=== PATIENT | female | born 1990 | race Hispanic/Latino ===

== ENCOUNTER 2019-08-26 05:30 | Inpatient (IN) | payer OTHER ==
--- NOTE | 2019-08-25 19:59 | PDOC.LDHP ---
Labor and Delivery H&P HPI: 29 y/o at 40 and 1/7 weeks presents for TOLAC with pitocin induction. R /B/A of TOLAC carefully discussed in clinic on multiple occasions, including on 08/25/19 in detail. Current gestational age (weeks): 40 Due date: 08/25/19 Grav: 7 Para: 2 Current complications: none Abnormal US findings: No Current medications: pre-hamida vitamins Previous surgical history: low tranverse CS Social history: none - Physical Exam Vital signs reviewed and normal: yes General: NAD Heart: RRR Lungs: CTAB Abdomen: NTTP Extremeties: no edema FHT: category 1 - Assessment L&D Assessment: medically indicated induction - Plan Plan: admit to L&D, cervical ripening
[~2019-08-26 05:30] MED LIST: Acetaminophen 500 MG TAB PO PRN; Butorphanol Tartrate 1 MG/ML VIAL SLOW IVP PRN; Carboprost 250 MCG/ML AMP IM PRN; Diphenoxylate HCl/Atropine Tablet PO PRN; Docusate 100 MG CAP PO PRN; HYDROcodone/Acetaminophen 5/325 mg Tablet PO PRN; Ibuprofen 800 MG TAB PO PRN; Lidocaine 1% (PF) 30 ML VIAL SC PRN; Methylergonovine 0.2 MG/ML VIAL IM PRN; Misoprostol 200 MCG TAB PR PRN; NS / Oxytocin 40 units/1000ml 1,000 ML IV PRN; NS w/ Oxytocin 10 units 500 ML IV SCH; Ondansetron PF 4 MG/2 ML Vial IVP PRN; Promethazine HCl 25 MG/ML VIAL IM PRN; Zolpidem Tartrate 5 MG TAB PO PRN; hydrALAZINE 20 MG/ML VIAL SLOW IVP PRN
[2019-08-26] MEDS ORDERED: Bupivacaine 0.25% HCL 30 ML VIAL ONE (08:51)
[2019-08-26 09:12] VITALS: BMI 35.4
[2019-08-26] MEDS: Lactated Ringer's 1,000 ML IV SCH ×4 (09:26→18:03)
[2019-08-26 09:43] LABS: Hemoglobin 12.7 g/dL (12.0-16.0); Mean Corpuscular HGB CONC 35.5 g/dL (32.0-36.0); Mean Corpuscular Hemoglobin 32.2 pg (27.0-31.0); Mean Corpuscular Volume 90.8 fL (78.0-98.0); Mean Platelet Volume 7.9 fL (7.4-10.4); Platelet Count 196 thou/uL (130-400); RBC Distribution Width 14.4 % (11.5-14.5); Red Blood Cell (RBC) Count 3.94 mill/uL (4.20-5.40); White Blood Cell (WBC) Count 9.6 thou/uL (4.8-10.8)
[2019-08-26] MEDS ORDERED: FLU VACC QS2019-20(6MOS UP)/PF 60 MCG/0.5 ML SYRINGE IM ONE (10:00)
[2019-08-26 10:23] LABS: HBSAg Index 0.21 S/CO (0-0.99); Hep B Surf Ag Non-Reactive S/CO (NonReactive); Syphilis Antibody Nonreactive (Nonreactive); Syphilis Antibody Index 0.03 S/CO (<1.00 Non-Reactive)
[2019-08-26] MEDS: NS w/ Oxytocin 10 units 500 ML IV SCH (10:35)
[2019-08-26] MEDS ORDERED: Fentanyl 4 mcg/Bup 0.1% Cadd 100 ML ONE (14:15)
[2019-08-26 16:32] LABS: Cocaine Metabolite Screen Not Detected (NotDetected); Medtox Reader # READER 4; Methamphetamine Not Detected (NotDetected); Opiate Screen Not Detected (NotDetected); Phencyclidine (PCP) Not Detected (NotDetected); THC/Cannabinoid Screen Detected (NotDetected)
[2019-08-26 16:33] LABS: Amphetamine Not Detected (NotDetected); Barbiturates Screen Not Detected (NotDetected); Benzodiazepine Screen Not Detected (NotDetected); Medtox Control Line Valid? VALID (VALID); Methadone Not Detected (NotDetected); Oxycodone Screen Not Detected (NotDetected); Tricyclic Screen Not Detected (NotDetected)
[2019-08-26] MEDS ORDERED: diphenhydrAMINE 50 MG/ML VIAL IVP PRN (17:09)
[2019-08-26] MEDS ORDERED: Acetaminophen 325 MG TAB PO PRN (17:09)
[2019-08-26] MEDS ORDERED: Naloxone HCl 0.4 mg/ml Vial IVP PRN ×2 (17:09)
[2019-08-26] MEDS ORDERED: Promethazine HCl 25 MG/ML VIAL IM PRN (17:09)
[2019-08-26] MEDS ORDERED: Lactated Ringer's 500 ML IV PRN (17:09)
[2019-08-26] MEDS ORDERED: Ondansetron PF 4 MG/2 ML Vial IVP PRN (17:09)
[2019-08-26] MEDS ORDERED: Fentanyl 4 mcg/Bupivacaine 0.1% Cassette 100 ML EPIDURAL SCH (17:15)
[2019-08-26] MEDS ORDERED: Communication Order-Pharmacy FS SCH (17:15)
--- NOTE | 2019-08-26 18:07 | PDOC.EVN ---
Event Note - Event Note Event Note: AROM /-1 FHT 130s mod ltv after arom late appearing decels began. position changes, iv bolus. if necessary will cut pit by 50%
[2019-08-26] MEDS: Dextrose 5 % And 0.9 % NaCl 1,000 ML IV SCH (18:31)
[2019-08-27] MEDS ORDERED: Fentanyl 4 mcg/Bup 0.1% Cadd 100 ML ONE (01:13)
[2019-08-27] MEDS: Lactated Ringer's 1,000 ML IV SCH (01:25)
[2019-08-27] MEDS ORDERED: NS / Oxytocin 40 units/1000ml 1,000 ML IV SCH (07:13)
[2019-08-27] MEDS ORDERED: Adacel (T-DAP) 0.5 ML SYRINGE IM ONE (07:13)
[2019-08-27] MEDS ORDERED: Ondansetron PF 4 MG/2 ML Vial IVP PRN (07:13)
[2019-08-27] MEDS ORDERED: Misoprostol 200 MCG TAB VAG PRN (07:13)
[2019-08-27] MEDS ORDERED: Bisacodyl 10 MG SUPP PR PRN (07:13)
[2019-08-27] MEDS ORDERED: diphenhydrAMINE 25 MG CAP PO PRN (07:13)
[2019-08-27] MEDS ORDERED: HYDROcodone/Acetaminophen 5/325 mg Tablet PO PRN (07:13)
[2019-08-27] MEDS ORDERED: Lanolin Ointment 7 GM TUBE TOP PRN (07:13)
[2019-08-27] MEDS ORDERED: Milk Of Magnesia 30 ML UDCUP PO PRN (07:13)
[2019-08-27] MEDS ORDERED: Promethazine HCl 25 MG/ML VIAL IM PRN (07:13)
[2019-08-27] MEDS ORDERED: Measles/Mumps/Rubella 10 MCG/0.5 ML VIAL SC ONE (07:13)
[2019-08-27] MEDS ORDERED: Zolpidem Tartrate 5 MG TAB PO PRN (07:13)
[2019-08-27] MEDS ORDERED: Varicella virus, LIVE 0.5 ML VIAL SC ONE (07:13)
[2019-08-27] MEDS ORDERED: hydrALAZINE 20 MG/ML VIAL SLOW IVP PRN (07:13)
[2019-08-27] MEDS ORDERED: Preparation H Ointment 28 GM TUBE PR PRN (07:13)
[2019-08-27] MEDS ORDERED: Methylergonovine 0.2 MG/ML VIAL IM PRN (07:13)
[2019-08-27] MEDS: Ferrous Sulfate 325 MG TAB PO SCH ×2 (08:48→18:39)
[2019-08-27] MEDS: Docusate Calcium (SURFAK) 240 MG CAP PO SCH ×2 (10:35→21:29)
[2019-08-27] MEDS: Prenatal Vitamin 1 TAB PO SCH (10:36)
[2019-08-27] MEDS: Ibuprofen 800 MG TAB PO SCH ×2 (12:38→21:29)
[2019-08-27] MEDS: NS w/ Oxytocin 10 units 500 ML IV SCH (13:54)
[2019-08-27] MEDS: Dextrose 5 % And 0.9 % NaCl 1,000 ML IV SCH (13:55)
[2019-08-27] MEDS: HYDROcodone/Acetaminophen 5/325 mg Tablet PO PRN (19:53)
[2019-08-28] MEDS: Ibuprofen 800 MG TAB PO SCH ×2 (05:34→14:04)
[2019-08-28 06:11] LABS: Hemoglobin 12.3 g/dL (12.0-16.0); Mean Corpuscular Hemoglobin 31.5 pg (27.0-31.0); Mean Corpuscular Volume 92.9 fL (78.0-98.0); Mean Platelet Volume 7.8 fL (7.4-10.4); Platelet Count 192 thou/uL (130-400); RBC Distribution Width 14.4 % (11.5-14.5); Red Blood Cell (RBC) Count 3.89 mill/uL (4.20-5.40); White Blood Cell (WBC) Count 14.7 thou/uL (4.8-10.8)
[2019-08-28] MEDS: Ferrous Sulfate 325 MG TAB PO SCH (07:09)
[2019-08-28] MEDS: Docusate Calcium (SURFAK) 240 MG CAP PO SCH (09:03)
[2019-08-28] MEDS: Prenatal Vitamin 1 TAB PO SCH (09:03)
[2019-08-28] MEDS: HYDROcodone/Acetaminophen 5/325 mg Tablet PO PRN ×2 (09:03→17:14)
[2019-08-28 17:23] VITALS: BP 128/75; TEMP 97.6
== END 2019-08-28 17:26 | disposition home or self-care (01) | DRG 807 ==
LOC: L&D 08:30 → 3SE 08-27 10:51
PROVIDERS: ADMIT Obstetrics & Gynecology; ATTEND Obstetrics & Gynecology
PROC: 10E0XZZ Delivery of Products of Conception, External Approach (ICD-10-PCS; principal; 2019-08-26)
PROC: 3E033VJ Introduction of Other Hormone into Peripheral Vein, Percutaneous Approach (ICD-10-PCS; 2019-08-26)
DX: O80 Encounter for full-term uncomplicated delivery (principal); Z37.0 Single live birth; Z3A.40 40 weeks gestation of pregnancy
CPT/HCPCS: 36415; 51702; 80306; 85027; 86780; 86850; 86900; 86901; 87340; J1200; J2405; J2590